=== PATIENT | female | born 1935 | race Asian ===

== ENCOUNTER → 2017-03-08 | Outpatient (CLI) | payer MEDICARE ==
[~2017-03-08] MED LIST: AMLODIPINE BESYLATE PO; CIPRO250 MG PO; CIPROFLOXACIN500 MG PO; CLOPIDOGREL75 MG PO; COREG12.5 MG PO; DUONEB 3ML 3 MG/3 ML; GLUCOPHAGE500 MG PO; HYZAAR 25 MG-101 TA1 PO; K-Lor 20MEQ20 MEQ PO; KEFLEX500 MG; LANTUS100 U/ML PO; LASIX20 MG; LASIX20 MG PO; LIPITOR40 MG; LIPITOR80 MG PO; LOSARTAN POTASS1 TA4 PO; LOSARTAN-HCTZ 100-25; METFORMIN500 MG PO; MIRALAX POWDER255 GM PO; MUCINEX DM 30/61 TAB; NORCO 325 MG-51 TAB PO; NORVASC10 MG PO; NORVASC5 MG; PEPCID AC20 MG PO; PEPCID20 MG PO; PLAVIX75 MG; POTASSIUM CHLO10 ME1 PO; PYRIDIUM200 MG PO; SIMVASTATIN40 MG PO; ZITHROMAX250 MG; Zofran4 MG PO
[2017-03-08 09:44] LABS: BASO # 0.1 10*3/uL (0.0-0.1); BASO % 1.3 % (0.0-1.0); EOS # 0.4 10*3/uL (0.0-0.4); EOS % 6.7 % (1.0-4.0); HEMATOCRIT 35.3 % (37.0-47.0); HEMOGLOBIN 11.7 g/dl (12.0-16.0); LYMPH # 2.1 10*3/uL (1.3-4.4); LYMPH % 34.9 % (27.0-41.0); MEAN CELL VOLUME 85.9 fl (81.0-99.0); MEAN CORPUSCULAR HGB 28.5 pg (27.0-31.0); MEAN CORPUSCULAR HGB CONC 33.1 g/dl (33.0-37.0); MEAN PLATELET VOLUME 10.4 fl (9.6-12.3); MONO # 0.7 10*3/uL (0.1-1.0); NEUT # 2.7 10*3/uL (2.3-7.9); NEUT % 45.9 % (47.0-73.0); PLATELET COUNT AUTOMATED 163 10*3/uL (130-400); RED BLOOD COUNT 4.11 10*6/uL (4.10-5.10); RED CELL DISTRI WIDTH 14.4 % (0-14.5)
[2017-03-08 10:21] LABS: ALBUMIN 3.7 gm/dl (3.1-4.5); BILIRUBIN, DIRECT 0.2 mg/dL (0.0-0.2); BILIRUBIN, TOTAL 0.5 mg/dl (0.2-1.0); PHOSPHOROUS 3.3 mg/dL (2.5-4.9); POTASSIUM 3.9 mmol/L (3.5-5.1); TOTAL PROTEIN 7.6 gm/dL (6.4-8.2)
[2017-03-08 10:22] LABS: HEMOGLOBIN A1c 8.5 % (4.8-5.6)
== END | disposition home or self-care (01) ==
LOC: LAB 09:20
PROVIDERS: Internal Medicine
DX: E11.9 Type 2 diabetes mellitus without complications (principal); I10 Essential (primary) hypertension

== ENCOUNTER → 2017-05-18 | Outpatient (CLI) | payer MEDICARE ==
[2017-05-18 10:49] LABS: ALBUMIN 3.7 gm/dl (3.1-4.5); PHOSPHOROUS 3.5 mg/dL (2.5-4.9); POTASSIUM 3.9 mmol/L (3.5-5.1)
== END | disposition home or self-care (01) ==
LOC: LAB 09:23
PROVIDERS: Internal Medicine
DX: I12.9 Hypertensive chronic kidney disease with stage 1 through stage 4 chronic kidney disease, or unspecified chronic kidney disease (principal); N18.3 Chronic kidney disease, stage 3 (moderate)

== ENCOUNTER → 2017-06-13 | Outpatient (CLI) | payer MEDICARE | END | disposition home or self-care (01) | LOC: RAD 09:08 | DX: J98.4 Other disorders of lung (principal); I10 Essential (primary) hypertension; E11.9 Type 2 diabetes mellitus without complications; R32 Unspecified urinary incontinence ==

== ENCOUNTER 2017-08-02 14:57 | Emergency (ER) | payer MEDICARE ==
[~2017-08-02] VITALS: Wt 53.5 kg
[2017-08-02 16:01] LABS: BILIRUBIN NEGATIVE (NEGATIVE); BLOOD 3+ (NEGATIVE); CLARITY SL CLOUDY (CLEAR); COLOR YELLOW (YELLOW); GLUCOSE 3+ (NEGATIVE); KETONE NEGATIVE (NEGATIVE); LEUKO ESTERASE 2+ (NEGATIVE); NITRITE NEGATIVE (NEGATIVE); PH 6.5 (5.0-9.0); UROBILINOGEN 0.2 E.U./dl (0.2-1.0)
[2017-08-02 16:08] LABS: RBC TNTC rbc/hpf (0-2)
[2017-08-02] MEDS ORDERED: MACROBID100 M1 PO (16:10)
== END 2017-08-02 16:29 | disposition home or self-care (01) ==
LOC: ED 14:57
PROVIDERS: Nurse Practitioner Family
DX: N30.01 Acute cystitis with hematuria (principal); E11.9 Type 2 diabetes mellitus without complications; I10 Essential (primary) hypertension; Z79.899 Other long term (current) drug therapy

== ENCOUNTER → 2017-09-27 | Outpatient (CLI) | payer MEDICARE ==
[~2017-09-27] MED LIST changes: +MACROBID100 M1 PO
[2017-09-27 09:33] LABS: BASO % 0.6 % (0.0-1.0); EOS # 0.2 10*3/uL (0.0-0.4); EOS % 3.6 % (1.0-4.0); HEMATOCRIT 32.2 % (37.0-47.0); HEMOGLOBIN 10.6 g/dl (12.0-16.0); LYMPH # 1.3 10*3/uL (1.3-4.4); LYMPH % 26.4 % (27.0-41.0); MEAN CELL VOLUME 86.6 fl (81.0-99.0); MEAN CORPUSCULAR HGB 28.5 pg (27.0-31.0); MEAN CORPUSCULAR HGB CONC 32.9 g/dl (33.0-37.0); MEAN PLATELET VOLUME 10.7 fl (9.6-12.3); MONO # 0.6 10*3/uL (0.1-1.0); MONO % 12.6 % (3.0-9.0); NEUT # 2.7 10*3/uL (2.3-7.9); NEUT % 56.6 % (47.0-73.0); PLATELET COUNT AUTOMATED 169 10*3/uL (130-400); RED BLOOD COUNT 3.72 10*6/uL (4.10-5.10); RED CELL DISTRI WIDTH 14.1 % (0-14.5); WHITE BLOOD COUNT 4.8 10*3/uL (4.8-10.8)
[2017-09-27 10:11] LABS: ALBUMIN 3.4 gm/dl (3.1-4.5); BILIRUBIN, DIRECT 0.1 mg/dL (0.0-0.2); CREATININE 1.31 mg/dL (0.55-1.02); PHOSPHOROUS 3.3 mg/dL (2.5-4.9); POTASSIUM 4.2 mmol/L (3.5-5.1); TOTAL PROTEIN 7.3 gm/dL (6.4-8.2)
== END | disposition home or self-care (01) ==
LOC: LAB 08:58
PROVIDERS: Internal Medicine
DX: I12.9 Hypertensive chronic kidney disease with stage 1 through stage 4 chronic kidney disease, or unspecified chronic kidney disease (principal); E11.22 Type 2 diabetes mellitus with diabetic chronic kidney disease; N18.3 Chronic kidney disease, stage 3 (moderate); I25.10 Atherosclerotic heart disease of native coronary artery without angina pectoris; R62.7 Adult failure to thrive

== ENCOUNTER → 2018-01-17 | Outpatient (CLI) | payer MEDICARE ==
[2018-01-17 10:14] LABS: BASO % 0.7 % (0.0-1.0); EOS # 0.3 10*3/uL (0.0-0.4); EOS % 4.3 % (1.0-4.0); HEMATOCRIT 34.5 % (37.0-47.0); HEMOGLOBIN 11.2 g/dl (12.0-16.0); LYMPH # 1.6 10*3/uL (1.3-4.4); LYMPH % 26.2 % (27.0-41.0); MEAN CORPUSCULAR HGB 27.6 pg (27.0-31.0); MEAN CORPUSCULAR HGB CONC 32.5 g/dl (33.0-37.0); MEAN PLATELET VOLUME 10.7 fl (9.6-12.3); MONO # 0.7 10*3/uL (0.1-1.0); MONO % 10.8 % (3.0-9.0); NEUT # 3.5 10*3/uL (2.3-7.9); NEUT % 57.8 % (47.0-73.0); PLATELET COUNT AUTOMATED 174 10*3/uL (130-400); RED BLOOD COUNT 4.06 10*6/uL (4.10-5.10); RED CELL DISTRI WIDTH 14.6 % (0-14.5)
[2018-01-17 10:43] LABS: ALBUMIN 3.7 gm/dl (3.1-4.5); BILIRUBIN, DIRECT 0.1 mg/dL (0.0-0.2); CREATININE 1.42 mg/dL (0.55-1.02); PHOSPHOROUS 3.3 mg/dL (2.5-4.9); TOTAL PROTEIN 7.7 gm/dL (6.4-8.2)
[2018-01-17 12:25] LABS: VITAMIN D, 25-HYDROXY 29.6 ng/mL (30-100)
== END | disposition home or self-care (01) ==
LOC: LAB 09:41
PROVIDERS: Internal Medicine
DX: I25.10 Atherosclerotic heart disease of native coronary artery without angina pectoris (principal); D63.1 Anemia in chronic kidney disease; I12.9 Hypertensive chronic kidney disease with stage 1 through stage 4 chronic kidney disease, or unspecified chronic kidney disease; N18.3 Chronic kidney disease, stage 3 (moderate); E11.22 Type 2 diabetes mellitus with diabetic chronic kidney disease

== ENCOUNTER → 2018-05-19 | Outpatient (CLI) | payer MEDICARE ==
[2018-05-19 10:26] LABS: BASO % 0.6 % (0.0-1.0); EOS # 0.2 10*3/uL (0.0-0.4); EOS % 3.4 % (1.0-4.0); HEMATOCRIT 33.1 % (37.0-47.0); HEMOGLOBIN 10.7 g/dl (12.0-16.0); LYMPH # 1.6 10*3/uL (1.3-4.4); LYMPH % 25.3 % (27.0-41.0); MEAN CELL VOLUME 86.4 fl (81.0-99.0); MEAN CORPUSCULAR HGB 27.9 pg (27.0-31.0); MEAN CORPUSCULAR HGB CONC 32.3 g/dl (33.0-37.0); MEAN PLATELET VOLUME 10.4 fl (9.6-12.3); MONO # 0.7 10*3/uL (0.1-1.0); MONO % 11.4 % (3.0-9.0); NEUT # 3.7 10*3/uL (2.3-7.9); NEUT % 59.1 % (47.0-73.0); PLATELET COUNT AUTOMATED 156 10*3/uL (130-400); RED BLOOD COUNT 3.83 10*6/uL (4.10-5.10); RED CELL DISTRI WIDTH 14.6 % (0-14.5); WHITE BLOOD COUNT 6.2 10*3/uL (4.8-10.8)
[2018-05-19 10:43] LABS: ALBUMIN 3.5 gm/dl (3.1-4.5); BILIRUBIN, DIRECT 0.1 mg/dL (0.0-0.2); CREATININE 1.26 mg/dL (0.55-1.02); POTASSIUM 3.6 mmol/L (3.5-5.1); TOTAL PROTEIN 7.4 gm/dL (6.4-8.2)
== END | disposition home or self-care (01) ==
LOC: LAB 09:40
PROVIDERS: Internal Medicine
DX: E11.9 Type 2 diabetes mellitus without complications (principal)

== ENCOUNTER → 2018-08-30 | Outpatient (CLI) | payer MEDICARE ==
[2018-08-30 10:23] LABS: BASO % 0.6 % (0.0-1.0); EOS # 0.2 10*3/uL (0.0-0.4); EOS % 2.5 % (1.0-4.0); HEMOGLOBIN 10.4 g/dl (12.0-16.0); LYMPH # 1.6 10*3/uL (1.3-4.4); LYMPH % 22.7 % (27.0-41.0); MEAN CELL VOLUME 85.8 fl (81.0-99.0); MEAN CORPUSCULAR HGB 27.9 pg (27.0-31.0); MEAN CORPUSCULAR HGB CONC 32.5 g/dl (33.0-37.0); MEAN PLATELET VOLUME 10.9 fl (9.6-12.3); MONO # 0.5 10*3/uL (0.1-1.0); MONO % 6.9 % (3.0-9.0); NEUT # 4.6 10*3/uL (2.3-7.9); NEUT % 67.2 % (47.0-73.0); PLATELET COUNT AUTOMATED 142 10*3/uL (130-400); RED BLOOD COUNT 3.73 10*6/uL (4.10-5.10); RED CELL DISTRI WIDTH 14.8 % (0-14.5); WHITE BLOOD COUNT 6.9 10*3/uL (4.8-10.8)
[2018-08-30 10:38] LABS: ALBUMIN 3.4 gm/dl (3.1-4.5); ALKALINE PHOSPHATASE 36 U/L (45-117); BILIRUBIN, DIRECT < 0.1 mg/dL (0.0-0.2); BUN 30 mg/dl (7-24); CHLORIDE 102 mmol/L (98-107); CHOLESTEROL 130 mg/dL (<200); CREATININE 1.34 mg/dL (0.55-1.02); HDL CHOLESTEROL 51 mg/dl (40-60); LDL CHOLESTEROL 63 mg/dL (9-159); PHOSPHOROUS 3.5 mg/dL (2.5-4.9); POTASSIUM 3.6 mmol/L (3.5-5.1); SGOT/AST 20 IU/L (3-35); SGPT/ALT 15 U/L (12-78); SODIUM 139 mmol/L (136-145); TRIGLYCERIDES 79 mg/dl (<150); VLDL CHOLESTEROL 16 mg/dL (6-40)
== END | disposition home or self-care (01) ==
LOC: LAB 09:33
PROVIDERS: Internal Medicine
DX: I12.9 Hypertensive chronic kidney disease with stage 1 through stage 4 chronic kidney disease, or unspecified chronic kidney disease (principal); E11.22 Type 2 diabetes mellitus with diabetic chronic kidney disease; D63.1 Anemia in chronic kidney disease; N18.3 Chronic kidney disease, stage 3 (moderate)

== ENCOUNTER → 2018-11-16 | Outpatient (CLI) | payer MEDICARE ==
[2018-11-16 11:09] LABS: BASO # 0.1 10*3/uL (0.0-0.1); EOS # 0.3 10*3/uL (0.0-0.4); LYMPH # 1.5 10*3/uL (1.3-4.4); LYMPH % 29.2 % (27.0-41.0); MEAN CELL VOLUME 86.8 fl (81.0-99.0); MEAN CORPUSCULAR HGB CONC 32.3 g/dl (33.0-37.0); MONO # 0.6 10*3/uL (0.1-1.0); MONO % 11.2 % (3.0-9.0); NEUT # 2.7 10*3/uL (2.3-7.9); NEUT % 52.2 % (47.0-73.0); PLATELET COUNT AUTOMATED 166 10*3/uL (130-400); RED BLOOD COUNT 3.57 10*6/uL (4.10-5.10); RED CELL DISTRI WIDTH 15.3 % (0-14.5); WHITE BLOOD COUNT 5.2 10*3/uL (4.8-10.8)
[2018-11-16 11:25] LABS: ALBUMIN 3.2 gm/dl (3.1-4.5); BILIRUBIN, DIRECT 0.1 mg/dL (0.0-0.2); CREATININE 1.33 mg/dL (0.55-1.02); PHOSPHOROUS 2.9 mg/dL (2.5-4.9); POTASSIUM 3.9 mmol/L (3.5-5.1); TOTAL PROTEIN 6.9 gm/dL (6.4-8.2)
== END | disposition home or self-care (01) ==
LOC: LAB 10:00
PROVIDERS: Internal Medicine
DX: E11.9 Type 2 diabetes mellitus without complications (principal); I10 Essential (primary) hypertension; I25.10 Atherosclerotic heart disease of native coronary artery without angina pectoris

== ENCOUNTER → 2019-04-02 | Outpatient (CLI) | payer MEDICARE ==
[~2019-04-02] MED LIST changes: +DOCUSATE SOD100 MG PO; +LANTUS SOL100 UNIT/1 SQ
[2019-04-02 12:07] LABS: BASO % 0.6 % (0.0-1.0); EOS # 0.2 10*3/uL (0.0-0.4); EOS % 3.6 % (1.0-4.0); HEMATOCRIT 32.1 % (37.0-47.0); HEMOGLOBIN 10.5 g/dl (12.0-16.0); LYMPH # 1.5 10*3/uL (1.3-4.4); LYMPH % 21.8 % (27.0-41.0); MEAN CELL VOLUME 85.6 fl (81.0-99.0); MEAN CORPUSCULAR HGB CONC 32.7 g/dl (33.0-37.0); MEAN PLATELET VOLUME 10.4 fl (9.6-12.3); MONO # 0.6 10*3/uL (0.1-1.0); MONO % 8.4 % (3.0-9.0); NEUT # 4.4 10*3/uL (2.3-7.9); NEUT % 65.5 % (47.0-73.0); PLATELET COUNT AUTOMATED 173 10*3/uL (130-400); RED BLOOD COUNT 3.75 10*6/uL (4.10-5.10); WHITE BLOOD COUNT 6.8 10*3/uL (4.8-10.8)
[2019-04-02 12:37] LABS: ALBUMIN 3.3 gm/dl (3.1-4.5); BILIRUBIN, DIRECT 0.2 mg/dL (0.0-0.2); CREATININE 1.19 mg/dL (0.55-1.02); PHOSPHOROUS 3.9 mg/dL (2.5-4.9); THYROXINE (T4) TOTAL 10.4 ug/dl (4.8-13.9); TOTAL PROTEIN 7.1 gm/dL (6.4-8.2)
[2019-04-02 12:42] LABS: THYROID STIM HORMONE (HS) 3.73 uIU/ml (0.358-4.75)
== END | disposition home or self-care (01) ==
LOC: LAB 11:42
PROVIDERS: Internal Medicine
DX: I12.9 Hypertensive chronic kidney disease with stage 1 through stage 4 chronic kidney disease, or unspecified chronic kidney disease (principal); E11.22 Type 2 diabetes mellitus with diabetic chronic kidney disease; N18.3 Chronic kidney disease, stage 3 (moderate); I25.10 Atherosclerotic heart disease of native coronary artery without angina pectoris; D63.1 Anemia in chronic kidney disease

== ENCOUNTER → 2019-09-06 | Outpatient (CLI) | payer MEDICARE ==
[2019-09-06 11:15] LABS: ALBUMIN 3.2 gm/dl (3.1-4.5); BILIRUBIN, DIRECT 0.1 mg/dL (0.0-0.2); CREATININE 1.34 mg/dL (0.55-1.02); PHOSPHOROUS 3.4 mg/dL (2.5-4.9); POTASSIUM 3.7 mmol/L (3.5-5.1); TOTAL PROTEIN 7.1 gm/dL (6.4-8.2)
[2019-09-06 11:22] LABS: THYROID STIM HORMONE (HS) 4.31 uIU/ml (0.358-4.75)
== END | disposition home or self-care (01) ==
LOC: LAB 09:56
PROVIDERS: Internal Medicine
DX: E11.9 Type 2 diabetes mellitus without complications (principal); I10 Essential (primary) hypertension; E78.2 Mixed hyperlipidemia

== ENCOUNTER → 2020-05-06 | Outpatient (CLI) | payer MEDICARE ==
[~2020-05-06] MED LIST changes: +LEVOFLOXACIN250 M2 PO
[2020-05-06 10:19] LABS: BASO % 0.7 % (0.0-1.0); EOS # 0.2 10*3/uL (0.0-0.4); EOS % 3.6 % (1.0-4.0); HEMATOCRIT 32.6 % (37.0-47.0); LYMPH # 1.5 10*3/uL (1.3-4.4); LYMPH % 24.2 % (27.0-41.0); MEAN CELL VOLUME 82.1 fl (81.0-99.0); MEAN CORPUSCULAR HGB 25.9 pg (27.0-31.0); MEAN CORPUSCULAR HGB CONC 31.6 g/dl (33.0-37.0); MEAN PLATELET VOLUME 10.7 fl (9.6-12.3); MONO # 0.6 10*3/uL (0.1-1.0); MONO % 10.6 % (3.0-9.0); NEUT # 3.7 10*3/uL (2.3-7.9); NEUT % 60.7 % (47.0-73.0); PLATELET COUNT AUTOMATED 191 10*3/uL (130-400); RED BLOOD COUNT 3.97 10*6/uL (4.10-5.10); RED CELL DISTRI WIDTH 14.9 % (0-14.5)
[2020-05-06 10:43] LABS: ALBUMIN 3.4 gm/dl (3.1-4.5); CREATININE 1.1 mg/dL (0.55-1.02); POTASSIUM 3.2 mmol/L (3.5-5.1); TOTAL PROTEIN 7.3 gm/dL (6.4-8.2)
[2020-05-06 10:47] LABS: BILIRUBIN, DIRECT 0.1 mg/dL (0.0-0.2); THYROID STIM HORMONE (HS) 3.75 uIU/ml (0.358-4.75)
== END | disposition home or self-care (01) ==
LOC: LAB 09:25
PROVIDERS: Internal Medicine
DX: I12.9 Hypertensive chronic kidney disease with stage 1 through stage 4 chronic kidney disease, or unspecified chronic kidney disease (principal); E11.22 Type 2 diabetes mellitus with diabetic chronic kidney disease; N18.3 Chronic kidney disease, stage 3 (moderate); E78.2 Mixed hyperlipidemia

== ENCOUNTER 2020-05-20 01:47 | Emergency (ER) | payer MEDICARE ==
[~2020-05-20] VITALS: Ht 152.4 cm; Wt 54.4 kg
[2020-05-20 02:49] LABS: BASO # 0.1 10*3/uL (0.0-0.1); BASO % 0.8 % (0.0-1.0); EOS # 0.2 10*3/uL (0.0-0.4); EOS % 3.4 % (1.0-4.0); HEMATOCRIT 30.9 % (37.0-47.0); LYMPH # 1.9 10*3/uL (1.3-4.4); MEAN CELL VOLUME 82.2 fl (81.0-99.0); MEAN CORPUSCULAR HGB 26.1 pg (27.0-31.0); MEAN CORPUSCULAR HGB CONC 31.7 g/dl (33.0-37.0); MEAN PLATELET VOLUME 10.1 fl (9.6-12.3); MONO # 0.7 10*3/uL (0.1-1.0); MONO % 12.4 % (3.0-9.0); NEUT % 51.1 % (47.0-73.0); PLATELET COUNT AUTOMATED 191 10*3/uL (130-400); RED BLOOD COUNT 3.76 10*6/uL (4.10-5.10); RED CELL DISTRI WIDTH 15.6 % (0-14.5)
[2020-05-20 03:05] LABS: ALBUMIN 3.4 gm/dl (3.1-4.5); ALKALINE PHOSPHATASE 38 U/L (45-117); BUN 27 mg/dl (7-24); CHLORIDE 98 mmol/L (98-107); CREATININE 1.57 mg/dL (0.55-1.02); POTASSIUM 3.1 mmol/L (3.5-5.1); SGOT/AST 14 IU/L (3-35); SGPT/ALT 17 U/L (12-78); SODIUM 135 mmol/L (136-145); TOTAL PROTEIN 7.4 gm/dL (6.4-8.2)
[2020-05-20 03:09] LABS: TROPONIN I < 0.015 ng/ml (<0.045)
== END 2020-05-20 04:30 | disposition home or self-care (01) ==
LOC: ED 01:47
PROVIDERS: Emergency Medicine
DX: R60.0 Localized edema (principal); E78.5 Hyperlipidemia, unspecified; I13.0 Hypertensive heart and chronic kidney disease with heart failure and stage 1 through stage 4 chronic kidney disease, or unspecified chronic kidney disease; E11.22 Type 2 diabetes mellitus with diabetic chronic kidney disease; N18.3 Chronic kidney disease, stage 3 (moderate); Z79.899 Other long term (current) drug therapy; Z79.4 Long term (current) use of insulin

== ENCOUNTER 2020-06-15 04:04 | Emergency (ER) | payer MEDICARE ==
[~2020-06-15] VITALS: Ht 152.4 cm; Wt 72.6 kg
[2020-06-15 04:45] LABS: BASO % 0.5 % (0.0-1.0); EOS # 0.2 10*3/uL (0.0-0.4); EOS % 2.2 % (1.0-4.0); LYMPH # 1.4 10*3/uL (1.3-4.4); LYMPH % 16.6 % (27.0-41.0); MEAN CELL VOLUME 78.2 fl (81.0-99.0); MEAN CORPUSCULAR HGB 25.3 pg (27.0-31.0); MEAN CORPUSCULAR HGB CONC 32.4 g/dl (33.0-37.0); MONO # 0.7 10*3/uL (0.1-1.0); MONO % 7.9 % (3.0-9.0); NEUT # 6.2 10*3/uL (2.3-7.9); NEUT % 72.4 % (47.0-73.0); PLATELET COUNT AUTOMATED 181 10*3/uL (130-400); RED BLOOD COUNT 4.35 10*6/uL (4.10-5.10); RED CELL DISTRI WIDTH 14.6 % (0-14.5); WHITE BLOOD COUNT 8.5 10*3/uL (4.8-10.8)
[2020-06-15 04:55] LABS: ACT PARTIAL THROMBO TIME 25.3 SECONDS (20.0-32.1)
[2020-06-15 05:02] LABS: ALBUMIN 3.3 gm/dl (3.1-4.5); ALKALINE PHOSPHATASE 36 U/L (45-117); BUN 20 mg/dl (7-24); CHLORIDE 92 mmol/L (98-107); CREATININE 1.15 mg/dL (0.55-1.02); LIPASE 206 U/L (73-393); SGOT/AST 16 IU/L (3-35); SODIUM 131 mmol/L (136-145)
[2020-06-15 05:06] LABS: SGPT/ALT 17 U/L (12-78); TOTAL PROTEIN 7.3 gm/dL (6.4-8.2)
[2020-06-15 05:19] LABS: TROPONIN I < 0.015 ng/ml (<0.045)
[2020-06-15] MEDS ORDERED: K-TAB20 MEQ PO (05:47)
[2020-06-15 06:40] LABS: BILIRUBIN NEGATIVE (NEGATIVE); BLOOD NEGATIVE (NEGATIVE); CLARITY CLEAR (CLEAR); COLOR YELLOW (YELLOW); GLUCOSE NEGATIVE (NEGATIVE); KETONE NEGATIVE (NEGATIVE); LEUKO ESTERASE NEGATIVE (NEGATIVE); NITRITE NEGATIVE (NEGATIVE); PH 7.5 (5.0-9.0); SPECIFIC GRAVITY 1.005 (1.005-1.030); UROBILINOGEN 0.2 E.U./dl (0.2-1.0)
[2020-06-15 06:41] LABS: BACTERIA TRACE; EPITHELIAL CELLS 0-2; RBC 0-2 rbc/hpf (0-2); WBC 0-2 wbc/hpf (0-5)
== END 2020-06-15 07:45 | disposition home or self-care (01) ==
LOC: ED 04:04
PROVIDERS: Emergency Medicine Emergency Medical Services
DX: E11.649 Type 2 diabetes mellitus with hypoglycemia without coma (principal); E87.6 Hypokalemia; E11.22 Type 2 diabetes mellitus with diabetic chronic kidney disease; I13.0 Hypertensive heart and chronic kidney disease with heart failure and stage 1 through stage 4 chronic kidney disease, or unspecified chronic kidney disease; N18.9 Chronic kidney disease, unspecified; I50.9 Heart failure, unspecified; Z79.4 Long term (current) use of insulin; Z79.899 Other long term (current) drug therapy; Z98.61 Coronary angioplasty status

== ENCOUNTER → 2020-06-17 | Outpatient (CLI) | payer MEDICARE ==
[~2020-06-17] MED LIST changes: +K-TAB20 MEQ PO
[2020-06-17 16:03] LABS: BASO % 0.7 % (0.0-1.0); EOS # 0.2 10*3/uL (0.0-0.4); EOS % 4.1 % (1.0-4.0); HEMATOCRIT 31.4 % (37.0-47.0); LYMPH # 1.6 10*3/uL (1.3-4.4); LYMPH % 26.5 % (27.0-41.0); MEAN CELL VOLUME 78.9 fl (81.0-99.0); MEAN CORPUSCULAR HGB 25.1 pg (27.0-31.0); MEAN CORPUSCULAR HGB CONC 31.8 g/dl (33.0-37.0); MONO # 0.7 10*3/uL (0.1-1.0); MONO % 11.9 % (3.0-9.0); NEUT # 3.3 10*3/uL (2.3-7.9); NEUT % 56.6 % (47.0-73.0); PLATELET COUNT AUTOMATED 182 10*3/uL (130-400); RED BLOOD COUNT 3.98 10*6/uL (4.10-5.10); RED CELL DISTRI WIDTH 14.8 % (0-14.5); WHITE BLOOD COUNT 5.9 10*3/uL (4.8-10.8)
[2020-06-17 16:26] LABS: ALBUMIN 3.1 gm/dl (3.1-4.5); CREATININE 1.12 mg/dL (0.55-1.02)
== END | disposition home or self-care (01) ==
LOC: LAB 15:28
PROVIDERS: Internal Medicine
DX: I12.9 Hypertensive chronic kidney disease with stage 1 through stage 4 chronic kidney disease, or unspecified chronic kidney disease (principal); N18.3 Chronic kidney disease, stage 3 (moderate); D64.9 Anemia, unspecified

== ENCOUNTER → 2020-08-25 | Outpatient (CLI) | payer MEDICARE ==
[2020-08-25 10:44] LABS: ALBUMIN 3.4 gm/dl (3.1-4.5); CREATININE 1.49 mg/dL (0.55-1.02); POTASSIUM 4.4 mmol/L (3.5-5.1)
== END | disposition home or self-care (01) ==
LOC: LAB 09:47
PROVIDERS: ATTEND Internal Medicine Nephrology
DX: I10 Essential (primary) hypertension (principal)

== ENCOUNTER → 2020-11-06 | Outpatient (CLI) | payer MEDICARE ==
[2020-11-06 10:49] LABS: BASO % 0.5 % (0.0-1.0); EOS # 0.2 10*3/uL (0.0-0.4); EOS % 3.3 % (1.0-4.0); HEMATOCRIT 32.5 % (37.0-47.0); LYMPH # 1.6 10*3/uL (1.3-4.4); LYMPH % 28.6 % (27.0-41.0); MEAN CELL VOLUME 88.6 fl (81.0-99.0); MEAN CORPUSCULAR HGB 29.4 pg (27.0-31.0); MEAN CORPUSCULAR HGB CONC 33.2 g/dl (33.0-37.0); MEAN PLATELET VOLUME 10.4 fl (9.6-12.3); MONO # 0.5 10*3/uL (0.1-1.0); MONO % 8.7 % (3.0-9.0); NEUT # 3.4 10*3/uL (2.3-7.9); NEUT % 58.7 % (47.0-73.0); PLATELET COUNT AUTOMATED 172 10*3/uL (130-400); RED BLOOD COUNT 3.67 10*6/uL (4.10-5.10); RED CELL DISTRI WIDTH 13.6 % (0-14.5); WHITE BLOOD COUNT 5.7 10*3/uL (4.8-10.8)
[2020-11-06 11:09] LABS: ALBUMIN 3.3 gm/dl (3.1-4.5); CREATININE 1.52 mg/dL (0.55-1.02); POTASSIUM 4.4 mmol/L (3.5-5.1)
[2020-11-06 11:38] LABS: FERRITIN 31.8 ng/mL (10.0-291.0); PTH INTACT 30.2 pg/mL (18.5-88.0); VITAMIN D, 25-HYDROXY 54.2 ng/mL (30-100)
[2020-11-06 13:53] LABS: BILIRUBIN Negative (Negative); BLOOD Trace-Lysed (Negative); CLARITY Turbid (Clear); COLOR Yellow (Yellow); GLUCOSE Negative (Negative); KETONE Negative (Negative); LEUKO ESTERASE 3+ (Negative); NITRITE Negative (Negative); PH 7.5 (4.5-8.0); SPECIFIC GRAVITY 1.015 (1.001-1.030); UROBILINOGEN 0.2 E.U./dl (0.0-1.0)
[2020-11-06 14:02] LABS: URINE CREATININE RANDOM 92.1 mg/dL
== END | disposition home or self-care (01) ==
LOC: LAB 09:47
PROVIDERS: ATTEND Internal Medicine Nephrology
DX: N18.30 Chronic kidney disease, stage 3 unspecified (principal); N25.81 Secondary hyperparathyroidism of renal origin; Z79.899 Other long term (current) drug therapy

== ENCOUNTER → 2021-02-02 | Outpatient (CLI) | payer MEDICARE | END | disposition home or self-care (01) | LOC: COVID19 11:45 | PROVIDERS: ATTEND Surgery | DX: Z01.812 Encounter for preprocedural laboratory examination (principal); Z20.822 Contact with and (suspected) exposure to COVID-19 ==

== ENCOUNTER → 2021-04-28 | Outpatient (CLI) | payer MEDICARE ==
[2021-04-28 10:01] LABS: BASO % 0.5 % (0.0-1.0); EOS # 0.2 10*3/uL (0.0-0.4); EOS % 3.6 % (1.0-4.0); HEMATOCRIT 33.8 % (37.0-47.0); LYMPH # 1.4 10*3/uL (1.3-4.4); LYMPH % 22.8 % (27.0-41.0); MEAN CELL VOLUME 91.1 fl (81.0-99.0); MEAN CORPUSCULAR HGB 29.1 pg (27.0-31.0); MEAN PLATELET VOLUME 11.3 fl (9.6-12.3); MONO # 0.6 10*3/uL (0.1-1.0); MONO % 9.5 % (3.0-9.0); NEUT # 3.7 10*3/uL (2.3-7.9); NEUT % 62.8 % (47.0-73.0); PLATELET COUNT AUTOMATED 164 10*3/uL (130-400); RED BLOOD COUNT 3.71 10*6/uL (4.10-5.10); RED CELL DISTRI WIDTH 13.3 % (0-14.5); WHITE BLOOD COUNT 5.9 10*3/uL (4.8-10.8)
[2021-04-28 10:30] LABS: ALBUMIN 3.1 gm/dl (3.1-4.5); CREATININE 1.35 mg/dL (0.55-1.02); POTASSIUM 4.4 mmol/L (3.5-5.1)
[2021-04-28 11:39] LABS: VITAMIN D, 25-HYDROXY 40.2 ng/mL (30-100)
[2021-04-28 11:40] LABS: FERRITIN 22.5 ng/mL (10.0-291.0); PTH INTACT 51.8 pg/mL (18.5-88.0)
[2021-04-28 13:05] LABS: BILIRUBIN Negative (Negative); BLOOD Negative (Negative); CLARITY Cloudy (Clear); COLOR Yellow (Yellow); GLUCOSE 2+ (Negative); KETONE Negative (Negative); LEUKO ESTERASE Negative (Negative); NITRITE Negative (Negative); PH 5.5 (4.5-8.0); SPECIFIC GRAVITY 1.015 (1.001-1.030); UROBILINOGEN 0.2 E.U./dl (0.0-1.0)
[2021-04-28 13:16] LABS: BACTERIA 4+
== END | disposition home or self-care (01) ==
LOC: LAB 09:31
PROVIDERS: ATTEND Internal Medicine Nephrology
DX: N18.30 Chronic kidney disease, stage 3 unspecified (principal); D63.1 Anemia in chronic kidney disease; N25.81 Secondary hyperparathyroidism of renal origin; Z79.899 Other long term (current) drug therapy

== ENCOUNTER → 2021-05-06 | Outpatient (CLI) | payer MEDICARE ==
[2021-05-06 09:53] LABS: BASO % 0.5 % (0.0-1.0); EOS # 0.2 10*3/uL (0.0-0.4); EOS % 3.7 % (1.0-4.0); HEMATOCRIT 34.3 % (37.0-47.0); LYMPH # 1.8 10*3/uL (1.3-4.4); LYMPH % 31.5 % (27.0-41.0); MEAN CELL VOLUME 90.7 fl (81.0-99.0); MEAN CORPUSCULAR HGB 29.4 pg (27.0-31.0); MEAN CORPUSCULAR HGB CONC 32.4 g/dl (33.0-37.0); MEAN PLATELET VOLUME 10.9 fl (9.6-12.3); MONO # 0.5 10*3/uL (0.1-1.0); MONO % 9.3 % (3.0-9.0); NEUT # 3.1 10*3/uL (2.3-7.9); NEUT % 54.6 % (47.0-73.0); PLATELET COUNT AUTOMATED 145 10*3/uL (130-400); RED BLOOD COUNT 3.78 10*6/uL (4.10-5.10); RED CELL DISTRI WIDTH 13.5 % (0-14.5); WHITE BLOOD COUNT 5.7 10*3/uL (4.8-10.8)
[2021-05-06 10:10] LABS: BILIRUBIN, DIRECT 0.1 mg/dL (0.0-0.2); CREATININE 1.68 mg/dL (0.55-1.02); POTASSIUM 4.5 mmol/L (3.5-5.1); TOTAL PROTEIN 6.9 gm/dL (6.4-8.2)
== END | disposition home or self-care (01) ==
LOC: LAB 09:29
PROVIDERS: ATTEND Internal Medicine
DX: I12.9 Hypertensive chronic kidney disease with stage 1 through stage 4 chronic kidney disease, or unspecified chronic kidney disease (principal); E11.22 Type 2 diabetes mellitus with diabetic chronic kidney disease; N18.30 Chronic kidney disease, stage 3 unspecified; K92.1 Melena; R53.83 Other fatigue

== ENCOUNTER → 2021-08-11 | Outpatient (CLI) | payer MEDICARE ==
[2021-08-11 14:37] LABS: MEAN CELL VOLUME 89.5 fl (81.0-99.0); MEAN CORPUSCULAR HGB 29.2 pg (27.0-31.0); MEAN CORPUSCULAR HGB CONC 32.6 g/dl (33.0-37.0); MEAN PLATELET VOLUME 11.2 fl (9.6-12.3); RED BLOOD COUNT 3.91 10*6/uL (4.10-5.10); RED CELL DISTRI WIDTH 14.4 % (0-14.5); WHITE BLOOD COUNT 6.3 10*3/uL (4.8-10.8)
[2021-08-11 15:08] LABS: ALBUMIN 3.4 gm/dl (3.1-4.5); CREATININE 1.52 mg/dL (0.55-1.02); POTASSIUM 4.4 mmol/L (3.5-5.1)
[2021-08-11 15:13] LABS: THYROID STIM HORMONE (HS) 2.64 uIU/ml (0.358-4.75)
== END | disposition home or self-care (01) ==
LOC: LAB 01:12
PROVIDERS: ATTEND Internal Medicine
DX: E11.22 Type 2 diabetes mellitus with diabetic chronic kidney disease (principal); N18.30 Chronic kidney disease, stage 3 unspecified; E78.2 Mixed hyperlipidemia; R53.83 Other fatigue; F02.80 Dementia in other diseases classified elsewhere, unspecified severity, without behavioral disturbance, psychotic disturbance, mood disturbance, and anxiety

== ENCOUNTER → 2022-02-19 | Outpatient (CLI) | payer MEDICARE ==
[2022-02-19 12:07] LABS: BASO % 0.7 % (0.0-1.0); EOS # 0.2 10*3/uL (0.0-0.4); EOS % 2.8 % (1.0-4.0); HEMATOCRIT 34.8 % (37.0-47.0); LYMPH # 1.4 10*3/uL (1.3-4.4); LYMPH % 23.1 % (27.0-41.0); MEAN CELL VOLUME 87.2 fl (81.0-99.0); MEAN CORPUSCULAR HGB 28.1 pg (27.0-31.0); MEAN CORPUSCULAR HGB CONC 32.2 g/dl (33.0-37.0); MEAN PLATELET VOLUME 11.3 fl (9.6-12.3); MONO # 0.5 10*3/uL (0.1-1.0); MONO % 8.6 % (3.0-9.0); NEUT # 3.9 10*3/uL (2.3-7.9); NEUT % 64.5 % (47.0-73.0); PLATELET COUNT AUTOMATED 151 10*3/uL (130-400); RED BLOOD COUNT 3.99 10*6/uL (4.10-5.10); RED CELL DISTRI WIDTH 14.1 % (0-14.5)
[2022-02-19 12:22] LABS: CREATININE 1.66 mg/dL (0.55-1.02); POTASSIUM 4.6 mmol/L (3.5-5.1)
[2022-02-19 13:19] LABS: FERRITIN 26.8 ng/mL (10.0-291.0)
== END | disposition home or self-care (01) ==
LOC: LAB 11:41
PROVIDERS: ATTEND Internal Medicine Nephrology
DX: N18.30 Chronic kidney disease, stage 3 unspecified (principal); D63.1 Anemia in chronic kidney disease; N25.81 Secondary hyperparathyroidism of renal origin

== ENCOUNTER → 2022-02-20 | Outpatient (CLI) | payer MEDICARE ==
[2022-02-20 09:55] LABS: BILIRUBIN Negative (Negative); BLOOD Negative (Negative); CLARITY Cloudy (Clear); COLOR Yellow (Yellow); GLUCOSE 2+ (Negative); KETONE Negative (Negative); LEUKO ESTERASE Negative (Negative); NITRITE Negative (Negative); PH 5.5 (4.5-8.0); SPECIFIC GRAVITY 1.015 (1.001-1.030); UROBILINOGEN 0.2 E.U./dl (0.0-1.0)
[2022-02-20 10:25] LABS: BACTERIA 4+
[2022-02-20 10:26] LABS: URINE CREATININE RANDOM 48.1 mg/dL
== END | disposition home or self-care (01) ==
LOC: LAB 09:08
PROVIDERS: ATTEND Internal Medicine Nephrology
DX: N18.30 Chronic kidney disease, stage 3 unspecified (principal); N25.81 Secondary hyperparathyroidism of renal origin; D63.1 Anemia in chronic kidney disease; Z79.899 Other long term (current) drug therapy

== ENCOUNTER → 2022-08-27 | Outpatient (CLI) | payer MEDICARE ==
[2022-08-27 12:28] LABS: BASO % 0.3 % (0.0-1.0); EOS # 0.2 10*3/uL (0.0-0.4); EOS % 2.4 % (1.0-4.0); HEMATOCRIT 33.1 % (37.0-47.0); LYMPH # 1.4 10*3/uL (1.3-4.4); LYMPH % 21.3 % (27.0-41.0); MEAN CELL VOLUME 89.7 fl (81.0-99.0); MEAN CORPUSCULAR HGB 28.7 pg (27.0-31.0); MEAN PLATELET VOLUME 10.6 fl (9.6-12.3); MONO # 0.6 10*3/uL (0.1-1.0); MONO % 9.4 % (3.0-9.0); NEUT # 4.4 10*3/uL (2.3-7.9); NEUT % 66.3 % (47.0-73.0); PLATELET COUNT AUTOMATED 210 10*3/uL (130-400); RED BLOOD COUNT 3.69 10*6/uL (4.10-5.10); RED CELL DISTRI WIDTH 14.5 % (0-14.5); WHITE BLOOD COUNT 6.6 10*3/uL (4.8-10.8)
[2022-08-27 12:45] LABS: CREATININE 1.73 mg/dL (0.55-1.02); POTASSIUM 4.5 mmol/L (3.5-5.1)
[2022-08-27 12:56] LABS: THYROID STIM HORMONE (HS) 3.24 uIU/ml (0.358-4.75)
[2022-08-27 12:59] LABS: FERRITIN 130.3 ng/mL (10.0-291.0)
== END | disposition home or self-care (01) ==
LOC: LAB 11:37
PROVIDERS: Internal Medicine; ATTEND Internal Medicine Nephrology
DX: E11.22 Type 2 diabetes mellitus with diabetic chronic kidney disease (principal); E78.2 Mixed hyperlipidemia; N18.4 Chronic kidney disease, stage 4 (severe); D63.1 Anemia in chronic kidney disease; N25.81 Secondary hyperparathyroidism of renal origin

== ENCOUNTER → 2022-08-30 | Outpatient (CLI) | payer MEDICARE ==
[2022-08-30 10:37] LABS: URINE CREATININE RANDOM 44.1 mg/dL
== END | disposition home or self-care (01) ==
LOC: LAB 08:28
PROVIDERS: ATTEND Internal Medicine Nephrology
DX: N18.30 Chronic kidney disease, stage 3 unspecified (principal); N25.81 Secondary hyperparathyroidism of renal origin; D63.1 Anemia in chronic kidney disease; Z79.899 Other long term (current) drug therapy

== ENCOUNTER 2022-11-22 12:08 | Emergency (ER) | payer MEDICARE ==
[~2022-11-22 12:08] MED LIST changes: +AURYXIA210 MG PO; +BAYER ASPIRIN C81 MG PO; +COZAAR50 M1 PO; +FUROSEMIDE40 MG PO; +GLIMEPIRIDE2 MG PO; +IMDUR SA30 MG PO; +LANTUS SOL100 UNIT/1 SC; +POTASSIUM CHLO20 ME3 PO; +VITAMIN D-40010 MCG PO
[2022-11-22 12:58] LABS: HEMATOCRIT 28.2 % (37.0-47.0); MEAN CELL VOLUME 94.6 fl (81.0-99.0); MEAN CORPUSCULAR HGB 30.5 pg (27.0-31.0); MEAN CORPUSCULAR HGB CONC 32.3 g/dl (33.0-37.0); MEAN PLATELET VOLUME 10.5 fl (9.6-12.3); PLATELET COUNT AUTOMATED 167 10*3/uL (130-400); RED BLOOD COUNT 2.98 10*6/uL (4.10-5.10); RED CELL DISTRI WIDTH 16.9 % (0-14.5); WHITE BLOOD COUNT 7.4 10*3/uL (4.8-10.8)
[2022-11-22 13:04] LABS: MANUAL DIFF REFLEX YES
[2022-11-22 13:13] LABS: CREATININE 1.4 mg/dL (0.55-1.02); TOTAL PROTEIN 5.9 gm/dL (6.0-8.0)
[2022-11-22 13:23] LABS: TOTAL CELLS COUNTED 100 #CELLS
[2022-11-22 13:24] LABS: PLATELET SUFFICIENCY NORMAL (NORMAL)
[2022-11-22 15:25] LABS: BILIRUBIN Negative (Negative); BLOOD Negative (Negative); CLARITY Cloudy (Clear); COLOR Yellow (Yellow); GLUCOSE Negative (Negative); KETONE Negative (Negative); LEUKO ESTERASE Trace (Negative); NITRITE Negative (Negative); SPECIFIC GRAVITY 1.015 (1.001-1.030)
[2022-11-22 15:41] LABS: BACTERIA 4+
== END 2022-11-22 16:23 ==
LOC: ED 12:08
PROVIDERS: Nurse Practitioner Family
DX: R53.1 Weakness (principal); J90 Pleural effusion, not elsewhere classified; N18.9 Chronic kidney disease, unspecified